=== PATIENT | male | born 1975 | race Caucasian/White ===

== ENCOUNTER 2017-04-22 13:09 | Observation (INO) | payer MEDICARE, OTHER ==
[2017-04-22] MEDS ORDERED: Piperacillin/Tazobact 3.375 gm 100 ML IV STA (14:27)
[2017-04-22] MEDS ORDERED: Sodium Chloride 0.9% 1,000 ML IV ONE ×2 (14:28→16:25)
--- NOTE | 2017-04-22 14:42 | C.PDOC ---
History Of Present Illness Cheng Jon, a 41 year old male, with a past medical history of mentally disabled schizophrenia, diabetes and bipolar disorder presents to the ED complaining of tenderness, pain and foul smelling discharge to the right perineum x5 days . The patient claims to have moderately well controlled blood sugars. Patient is drinking a bottle of coca cola on exam. Time Seen by Provider: 04/22/17 13:35 Chief Complaint (Nursing): Abnormal Skin Integrity History Per: Patient History/Exam Limitations: no limitations Onset/Duration Of Symptoms: Days (x5 days) Current Symptoms Are (Timing): Still Present Quality Of Symptoms: Painful, Draining Past Medical History Reviewed: Historical Data, Nursing Documentation, Vital Signs Vital Signs: Last Vital Signs Temp 98.5 F 04/22/17 14:50 Pulse 107 H 04/22/17 15:22 Resp 20 04/22/17 15:22 BP 130/80 04/22/17 15:22 Pulse Ox 94 L 04/22/17 15:22 - Medical History PMH: Bipolar Disorder, Diabetes, Schizophrenia (affective) Family History: States: Unknown Family Hx - Social History Hx Alcohol Use: Yes Hx Substance Use: No - Immunization History Hx Tetanus Toxoid Vaccination: No Hx Influenza Vaccination: No Hx Pneumococcal Vaccination: No Review Of Systems Except As Marked, All Systems Reviewed And Found Negative. Genitourinary: Positive for: Other (pain, tenderness and fould discharge to right perineum.) Physical Exam - Physical Exam Appears: Well, Non-toxic, No Acute Distress Skin: Normal Color, Warm, Dry Head: Atraumatic, Normacephalic, No Tenderness Eye(s): bilateral: Normal Inspection, PERRL, EOMI Ear(s): Bilateral: Normal Nose: Normal Oral Mucosa: Moist Tongue: Normal Appearing Lips: Normal Appearing Teeth: Normal Dentition Gingiva: Normal Appearing Throat: Normal Neck: Normal, Normal ROM, Supple Cardiovascular: Other (tachycardic.) Respiratory: No Wheezing Gastrointestinal/Abdominal: Normal Exam, Bowel Sounds, Soft, No Tenderness, No Guarding, No Rebound Back: Normal Inspection, No CVA Tenderness Male Genital: Other (open wound with foul smelling discharge and tracking in right perineal area.) Neurological/Psych: Oriented x3, Normal Speech, Normal Cognition Gait: Steady ED Course And Treatment - Laboratory Results Result Diagrams: 04/22/17 14:51 04/22/17 14:51 Lab Interpretation: Abnormal (elev glu, non-ketotic, lactate 2.4 H) O2 Sat by Pulse Oximetry: 96 (RA) Pulse Ox Interpretation: Normal Progress Note: CT eval and Surgical eval by Dr. Magallanes and Surg Jarvis. Low susp of Fornier's Gangrene. Agree with ABX regimen. Will follow Reevaluation Time: 16:27 Reassessment Condition: Improved - Physician Consult Information Outcome Of Conversation: 1620: d/w Dr. Erlinda Noel- medicine Beater Operator- ok to Med/ SurgCamron Magallanes for Surgery will follow Medical Decision Making Medical Decision Makin Initial Impression: 41 year old male presenting with pain, tenderness and foul smelling discharge to right side of perineoum Initial Plan: * VBG * CT Pelvis w/IV Contrast * Comp Metabolic Panel * Lact Acid * Lipase * CBC * Morphine 6mg IVP * Zosyn 100ml IV * NS 1000mls IV 1000mls/hr * Vancomycin 250ml IV * Rocephin 50ml IV * Blood Culture * Urinalysis * Reevaluation 1620: initially highly suspicous for Fornier's Gangrene- empiric abx and CT Pelvis ordered Initial CT did not get low enough below scrotum to eval perinium. Repeat CT satisfactory, no Fornier's noted. Poorly controlled DM and pt drinking Cola @ bedside- mentally handicapped/ disabled due to Schizophrenia/Bipolar with poor insight is a siginificant contributing factor. Continue ABX and Obs Disposition Doctor Will See Patient In The: Hospital Counseled Patient/Family Regarding: Studies Performed, Diagnosis - Disposition Disposition: HOSPITALIZED Disposition Time: 16:30 Condition: GOOD Forms: [employer]) - Clinical Impression Clinical Impression: Skin lesion, Right groin wound - Scribe Statement The provider has reviewed the documentation as recorded by the Paoibtara Louis All medical record entries made by the Dee Dee were at my direction and personally dictated by me. I have reviewed the chart and agree that the record accurately reflects my personal performance of the history, physical exam, medical decision making, and the department course for this patient. I have also personally directed, reviewed, and agree with the discharge instructions and disposition. Provider Attestation: .
[2017-04-22] MEDS ORDERED: Morphine 4 MG/ML VIAL ONE (14:44)
[2017-04-22] MEDS ORDERED: Sodium Chloride 0.9% 1,000 ML ONE (14:44)
[2017-04-22] MEDS ORDERED: Piperacillin/Tazobact 3.375 gm 100 ML IVPB ONE (14:45)
[2017-04-22] MEDS ORDERED: Iodixanol 320 mg/ml 150 ml Bottle IV ONE (14:49)
[2017-04-22] MEDS ORDERED: cefTRIAXone IV 1 gm in Dextros 50 ML IV STA (14:54)
[2017-04-22 14:55] LABS: BASO # 0.1 K/uL (0.0-0.2); BASO % 0.7 % (0.0-2.0); EOS % 0.3 % (0.0-4.0); HEMOGLOBIN 15.3 g/dL (12.0-18.0); LYMPH # 2.2 K/uL (1.0-4.3); LYMPH % 24.5 % (20.0-40.0); MEAN CELL VOLUME 86.2 fL (80.0-94.0); MEAN CORPUSCULAR HEMOGLOBIN 29.6 pg (27.0-31.0); MEAN CORPUSCULAR HGB CONC 34.4 g/dL (33.0-37.0); MEAN PLATELET VOLUME 9.5 fL (7.2-11.7); MONO # 0.4 K/uL (0.0-0.8); MONO % 4.5 % (0.0-10.0); NEUT # 6.2 K/uL (1.8-7.0); RBC 5.15 Mil/uL (4.40-5.90); RED CELL DISTRIBUTION WIDTH 13.3 % (11.5-14.5); WHITE BLOOD COUNT 8.9 K/uL (4.8-10.8)
[2017-04-22 14:57] LABS: VENOUS BLOOD GAS BASE EXCESS -4.2 mmol/L (0.0-2.0); VENOUS BLOOD GAS PCO2 38 mmHg (40-60); VENOUS BLOOD GAS PO2 44 mm/Hg (30-55); VENOUS BLOOD PH 7.35 (7.32-7.43)
[2017-04-22 15:01] LABS: ALBUMIN 3.6 g/dL (3.5-5.0)
[2017-04-22] MEDS ORDERED: cefTRIAXone IV 1 gm in Dextros 50 ML IVPB ONE (15:02)
[2017-04-22 15:04] LABS: GFR AFRICAN-AMERICAN > 60; GFR NON-AFRICAN AMERICAN > 60
[2017-04-22 15:05] LABS: ALB/GLOB RATIO 1.1 (1.0-2.1); ALT/SGPT 57 U/L (21-72); AST/SGOT 30 U/L (17-59); BLOOD UREA NITROGEN 10 mg/dL (9-20); CALCIUM 8.8 mg/dl (8.6-10.4); LIPASE 44 U/L (23-300)
[2017-04-22] MEDS ORDERED: Vancomycin 1 GM 1 GM/250 ML BAG IV STA (15:08)
[2017-04-22] MEDS ORDERED: Vancomycin 1 GM 1 GM/250 ML BAG IVPB ONE (15:33)
[2017-04-22 15:40] LABS: URINE BILIRUBIN NEGATIVE (NEGATIVE); URINE BLOOD NEGATIVE (NEGATIVE); URINE CLARITY Clear (Clear); URINE COLOR Yellow (YELLOW); URINE GLUCOSE (UA) 3+ mg/dL (Normal); URINE LEUKOCYTE ESTERASE NEG Leu/uL (Negative); URINE NITRATE NEGATIVE (NEGATIVE); URINE PROTEIN NEGATIVE (NEGATIVE); URINE UROBILINOGEN NORMAL mg/dL (0.2-1.0)
[2017-04-22] MEDS ORDERED: (Novolin R) Insulin Human Regular 100 units/ml vial IV STA (15:42)
--- NOTE | 2017-04-22 15:42 | CT ---
CT pelvis History: Perineal pain. Comparison: None available. Technique: Multiple contiguous axial images were performed through pelvis without the use of intravenous contrast. Findings: Visualized portions of the penis appear grossly preserved. Only a portion of the scrotum is visualized. Visualized portion appears grossly preserved. Prostate appears preserved. Urinary bladder appears distended but otherwise preserved. Under distended distal sigmoid colon and rectum. Underdistended visualized descending colon. Visualized appendix is preserved. Visualized aorta and iliac vessels appear preserved. No significant para-aortic or inguinal lymphadenopathy. Few shotty bilateral inguinal lymph nodes. Small bone island within the left iliac bone. Impression: Unremarkable evaluation of the visualized pelvis; however, a portion of the perineum and scrotum was not imaged on this study. Repeat study through the scrotum and perineum region may be helpful for further evaluation if clinically indicated. Additional findings as above. These findings were discussed Dr. Medina at 3:39 p.m. on 04/22/2017.
[2017-04-22] MEDS ORDERED: (Novolin R) Insulin Human Regular 100 units/ml vial ONE (15:47)
[2017-04-22 15:48] VITALS: RESP 20
--- NOTE | 2017-04-22 16:19 | CP.PCM.CON ---
History of Present Illness - History of Present Illness History of Present Illness: GENERAL SURGERY CONSULT NOTE FOR DR. DIXON 41yo M with PMHx of DM, bipolar, schizophrenia presents to the ED with pain in his right perineal area. About 5 days ago, he noticed a boil in the area. He put an unknown lotion on the area and washed it multiple times. On , his partner tried to pop it and some pus came out. After that, the pain worsened prompting the patient to come to the ED. He is having difficulty laying down and sitting down due to the pain. He denies fever or chills. He is having normal bowel movements and urinating normally. Last BM was today. In the ED, patient received IV fluids, Rocephin, Vancomycin, Insulin and morphine. PMHx: DM, HTN, bipolar, schizophrenia Surgeries: none Allergies: penicillins Social history: occasional etoh, smokes 1 PPD, occasional marijuana in the past Review of Systems - Review of Systems All systems: reviewed and no additional remarkable complaints except (as per hpi ) Past Patient History - Past Social History Smoking Status: Heavy Smoker > 10 Cigarettes Daily - ENDOCRINE/METABOLIC Hx Diabetes Mellitus Type 2: Yes - PSYCHIATRIC Hx Bipolar Disorder: Yes Hx Schizophrenia: Yes (affective) Hx Substance Use: No - SURGICAL HISTORY Hx Surgeries: No - ANESTHESIA Hx Anesthesia: No Hx Anesthesia Reactions: No Meds Allergies/Adverse Reactions: Allergies Allergy/AdvReac Type Severity Reaction Status Date / Time Penicillins Allergy Verified 04/22/17 14:57 - Medications Medications: Current Medications Vancomycin HCl (Vancomycin 1gm In Normal Saline Addvantage) 1 gm in 250 mls @ 166.667 mls/hr IV STAT STA Stop: 04/22/17 16:37 Last Admin: 04/22/17 15:40 Dose: 166.667 mls/hr Physical Exam - Constitutional Appears: Non-toxic, No Acute Distress - Head Exam Head Exam: ATRAUMATIC, NORMAL INSPECTION - Respiratory Exam Respiratory Exam: NORMAL BREATHING PATTERN. absent: Respiratory Distress - Cardiovascular Exam Cardiovascular Exam: Tachycardia, +S1, +S2 - GI/Abdominal Exam GI & Abdominal Exam: Soft. absent: Tenderness - Exam Additional comments: Right perineal area: 2x1 cm opening with surrounding erythema, no discharge able to be expressed, no induration, no fluctuance, area malodorous. Opening was probed with a q-tip and it did not track in any direction - Neurological Exam Neurological exam: Alert, CN II-XII Intact - Psychiatric Exam Psychiatric exam: Normal Affect, Normal Mood - Skin Skin Exam: Normal Color, Warm Results - Vital Signs Recent Vital Signs: Last Vital Signs Temp 98.5 F 04/22/17 14:50 Pulse 107 H 04/22/17 15:22 Resp 20 04/22/17 15:22 BP 130/80 04/22/17 15:22 Pulse Ox 94 L 04/22/17 15:22 - Labs Result Diagrams: 04/23/17 07:15 04/23/17 07:15 Labs: Laboratory Results - last 24 hr 04/22/17 04/22/17 04/22/17 14:42 14:51 14:51 WBC 8.9 RBC 5.15 Hgb 15.3 Hct 44.4 MCV 86.2 MCH 29.6 MCHC 34.4 RDW 13.3 Plt Count 226 MPV 9.5 Neut % (Auto) 70.0 Lymph % (Auto) 24.5 [place] % (Auto) 4.5 Eos % (Auto) 0.3 Baso % (Auto) 0.7 Neut # 6.2 Lymph # 2.2 [place] # 0.4 Eos # 0.0 Baso # 0.1 pO2 44 VBG pH 7.35 VBG pCO2 38 L VBG HCO3 21.1 VBG Total CO2 22.2 VBG O2 Sat (Calc) 88.7 H VBG Base Excess -4.2 L VBG Potassium 3.7 Sodium 132.0 132 Chloride 101.0 95 L Glucose 498 H* Lactate 2.4 H Crit Value Called To Nadeem reyes Crit Value Called By Cullen Crit Value Read Back Y Blood Gas Notified Time 1452 Potassium 3.9 Carbon Dioxide 22 Anion Gap 19 BUN 10 Creatinine 0.7 L Est GFR ( Amer) > 60 Est GFR (Non-Af Amer) > 60 Random Glucose 526 H* D Calcium 8.8 Total Bilirubin 0.7 AST 30 ALT 57 Alkaline Phosphatase 107 Total Protein 6.9 Albumin 3.6 Globulin 3.3 Albumin/Globulin Ratio 1.1 Lipase 44 Venous Blood Potassium 3.7 Urine Color Urine Clarity Urine pH Ur Specific [place] Urine Protein Urine Glucose (UA) Urine Ketones Urine Blood Urine Nitrate Urine Bilirubin Urine Urobilinogen Ur Leukocyte Esterase Urine WBC (Auto) Urine RBC (Auto) 04/22/17 15:33 WBC RBC Hgb Hct MCV MCH MCHC RDW Plt Count MPV Neut % (Auto) Lymph % (Auto) [place] % (Auto) Eos % (Auto) Baso % (Auto) Neut # Lymph # [place] # Eos # Baso # pO2 VBG pH VBG pCO2 VBG HCO3 VBG Total CO2 VBG O2 Sat (Calc) VBG Base Excess VBG Potassium Sodium Chloride Glucose Lactate Crit Value Called To Crit Value Called By Crit Value Read Back Blood Gas Notified Time Potassium Carbon Dioxide Anion Gap BUN Creatinine Est GFR ( Amer) Est GFR (Non-Af Amer) Random Glucose Calcium Total Bilirubin AST ALT Alkaline Phosphatase Total Protein Albumin Globulin Albumin/Globulin Ratio Lipase Venous Blood Potassium Urine Color Yellow Urine Clarity Clear Urine pH 6.0 Ur Specific [place] 1.040 H Urine Protein Negative Urine Glucose (UA) 3+ H Urine Ketones Trace Urine Blood Negative Urine Nitrate Negative Urine Bilirubin Negative Urine Urobilinogen Normal Ur Leukocyte Esterase Neg Urine WBC (Auto) < 1 Urine RBC (Auto) < 1 Assessment & Plan - Assessment and Plan (Free Text) Assessment: 41yo M with PMHx of DM, bipolar, schizophrenia presents with pain in his right perineal area and was admitted for abscess with cellulitis, rule out Delbert's gangrene - Afebrile, tachycardic - BP stable - No leukocytosis - Lactic acid mildly elevated - Glucose >500 - IV fluids - Morphine PRN pain - Zofran PRN - IV Abx - FU wound cx which was taken in ED - Discussed plan with Dr. Elpidio Vail PGY-3
[2017-04-22] MEDS ORDERED: Morphine 4 MG/ML VIAL IVP PRN (16:27)
[2017-04-22] MEDS ORDERED: Sodium Chloride 0.9% 250 ML IV ONE (16:46)
[2017-04-22] MEDS: Enoxaparin 40 mg Syringe SC SCH (21:50)
[2017-04-22] MEDS: (Novolog) Insulin Aspart, Recombinant 100 u/ml 10 ml vial SC SCH (22:21)
--- NOTE | 2017-04-22 22:44 | CP.PCM.HP ---
Present on Admission - Present on Admission Any Indicators Present on Admission: No Past Patient History - Past Medical History & Family History Past Medical History?: Yes - Past Social History Smoking Status: Heavy Smoker > 10 Cigarettes Daily - CARDIAC Hx Cardiac Disorders: No - PULMONARY Hx Respiratory Disorders: No - NEUROLOGICAL Hx Neurological Disorder: No - HEENT Hx HEENT Problems: No - RENAL Hx Chronic Kidney Disease: No - ENDOCRINE/METABOLIC Hx Endocrine Disorders: Yes Hx Diabetes Mellitus Type 2: Yes - HEMATOLOGICAL/ONCOLOGICAL Hx Blood Disorders: No - INTEGUMENTARY Hx Dermatological Problems: Yes Other/Comment: right groin infection - MUSCULOSKELETAL/RHEUMATOLOGICAL Hx Musculoskeletal Disorders: No Hx Falls: No - GASTROINTESTINAL Hx Gastrointestinal Disorders: No - GENITOURINARY/GYNECOLOGICAL Hx Genitourinary Disorders: No - PSYCHIATRIC Hx Psychophysiologic Disorder: Yes Hx Bipolar Disorder: Yes Hx Schizophrenia: Yes (affective) Hx Substance Use: No - SURGICAL HISTORY Hx Surgeries: No - ANESTHESIA Hx Anesthesia: No Hx Anesthesia Reactions: No Meds Allergies/Adverse Reactions: Allergies Allergy/AdvReac Type Severity Reaction Status Date / Time Penicillins Allergy Verified 04/22/17 14:57 Physical Exam - Constitutional Appears: Well - Head Exam Head Exam: ATRAUMATIC, NORMAL INSPECTION, NORMOCEPHALIC - Eye Exam Eye Exam: EOMI, Normal appearance, PERRL Pupil Exam: NORMAL ACCOMODATION, PERRL - ENT Exam ENT Exam: Mucous Membranes Moist, Normal Exam - Neck Exam Neck exam: Positive for: Normal Inspection - Respiratory Exam Respiratory Exam: Decreased Breath Sounds - Cardiovascular Exam Cardiovascular Exam: REGULAR RHYTHM, +S1, +S2 - GI/Abdominal Exam GI & Abdominal Exam: Diminished Bowel Sounds, Soft - Rectal Exam Rectal Exam: Deferred Results - Vital Signs Recent Vital Signs: Last Vital Signs Temp 97.7 F 04/22/17 17:40 Pulse 84 04/22/17 17:40 Resp 20 04/22/17 17:40 BP 116/73 04/22/17 17:40 Pulse Ox 97 04/22/17 17:40 - Labs Result Diagrams: 04/22/17 14:51 04/22/17 14:51 Labs: Laboratory Results - last 24 hr 04/22/17 04/22/17 17:26 21:26 POC Glucose (mg/dL) 170 H 344 H
[2017-04-23] MEDS: Vancomycin 1 gm/NS 200 ml 1 GM/200 ML BAG IVPB SCH ×2 (03:25→14:35)
[2017-04-23 07:41] LABS: BASO % 0.6 % (0.0-2.0); EOS # 0.1 K/uL (0.0-0.7); EOS % 0.9 % (0.0-4.0); HEMOGLOBIN 14.9 g/dL (12.0-18.0); LYMPH # 2.4 K/uL (1.0-4.3); LYMPH % 29.7 % (20.0-40.0); MEAN CELL VOLUME 84.6 fL (80.0-94.0); MEAN CORPUSCULAR HEMOGLOBIN 29.6 pg (27.0-31.0); MEAN PLATELET VOLUME 9.3 fL (7.2-11.7); MONO # 0.5 K/uL (0.0-0.8); MONO % 5.9 % (0.0-10.0); NEUT # 5.1 K/uL (1.8-7.0); NEUT % 62.9 % (50.0-75.0); RBC 5.05 Mil/uL (4.40-5.90); RED CELL DISTRIBUTION WIDTH 13.4 % (11.5-14.5); WHITE BLOOD COUNT 8.1 K/uL (4.8-10.8)
[2017-04-23 07:53] LABS: ALBUMIN 3.1 g/dL (3.5-5.0)
[2017-04-23 07:56] LABS: ALT/SGPT 64 U/L (21-72); AST/SGOT 45 U/L (17-59); BLOOD UREA NITROGEN 9 mg/dL (9-20); GFR AFRICAN-AMERICAN > 60; GFR NON-AFRICAN AMERICAN > 60
[2017-04-23 07:57] LABS: CALCIUM 8.3 mg/dl (8.6-10.4)
[2017-04-23] MEDS: (Novolog) Insulin Aspart, Recombinant 100 u/ml 10 ml vial SC SCH ×4 (08:14→21:20)
--- NOTE | 2017-04-23 09:27 | CP.PCM.PN ---
Subjective - Date & Time of Evaluation Date of Evaluation: 04/23/17 Time of Evaluation: 07:00 - Subjective Subjective: GENERAL SURGERY PROGRESS NOTE FOR DR. DIXON Patient seen and examined at bedside. He reports that the pain is improved compared to yesterday. He is now able to sit and lay down to sleep which before were too painful for him. He denies fever or chills. Objective - Vital Signs/Intake and Output Vital Signs (last 24 hours): Temp Pulse Resp BP Pulse Ox 98.4 F 84 20 104/69 96 04/23/17 08:35 04/23/17 08:35 04/23/17 08:35 04/23/17 08:35 04/23/17 08:35 Intake and Output: 04/23/17 04/23/17 06:59 18:59 Intake Total 910 Balance 910 - Medications Medications: Current Medications Buspirone HCl (Buspar) 10 mg PO DAILY [facility] Enoxaparin Sodium (Lovenox) 40 mg SC DAILY [facility] Last Admin: 04/22/17 21:50 Dose: 40 mg Ceftriaxone Sodium 1 gm/ (Sodium Chloride) 100 mls @ 100 mls/hr IVPB DAILY [facility] Vancomycin/Sodium Chloride (Vancocin) 1 gm in 200 mls @ 133.333 mls/hr IVPB Q12H [facility] Last Admin: 04/23/17 03:25 Dose: 133.333 mls/hr Insulin Aspart (Novolog) 0 unit SC ACHS [facility] PRN Reason: Protocol Last Admin: 04/23/17 08:14 Dose: 4 unit Metformin HCl (Glucophage) [facility] [place] [facility] Last Admin: 04/22/17 21:50 Dose: 1,000 mg Morphine Sulfate (Morphine) 4 mg IVP Q4 PRN PRN Reason: Pain, moderate (4-7) Last Admin: 04/23/17 08:18 Dose: 4 mg Ondansetron HCl (Zofran Inj) 4 mg IVP Q4 PRN PRN Reason: Nausea/Vomiting Pantoprazole Sodium (Protonix Ec Tab) 40 mg PO DAILY [facility] Quetiapine Fumarate (Seroquel) 25 mg PO BID [facility] Last Admin: 04/22/17 21:50 Dose: 25 mg - Labs Labs: 04/23/17 07:15 04/23/17 07:15 - Constitutional Appears: Non-toxic, No Acute Distress - Head Exam Head Exam: ATRAUMATIC, NORMAL INSPECTION - Respiratory Exam Respiratory Exam: NORMAL BREATHING PATTERN. absent: Respiratory Distress - Cardiovascular Exam Cardiovascular Exam: +S1, +S2. absent: Tachycardia - Neurological Exam Neurological Exam: Alert, Awake, Oriented x3 - Psychiatric Exam Psychiatric exam: Normal Affect, Normal Mood - Skin Skin Exam: Normal Color, Warm Additional comments: Right perineal area: 2x1 cm opening and another 2x1cm opening right next to it with mild surrounding erythema, no discharge able to be expressed, no induration , no fluctuance, area malodorous. No crepitus felt Assessment and Plan - Assessment and Plan (Free Text) Assessment: 41yo M with PMHx of DM, bipolar, schizophrenia presents with pain in his right perineal area and was admitted for abscess with cellulitis, rule out Delbert's gangrene - Afebrile, tachycardic resolved - No leukocytosis - Glucose improved compared to yesterday but still high - IV fluids - Morphine PRN pain - Zofran PRN - IV Abx - Wound gram stain = few gram + cocci, wound culture to follow - Will continue to monitor with serial exams - Discussed plan with Dr. Elpidio Vail PGY-3
[2017-04-23] MEDS: Enoxaparin 40 mg Syringe SC SCH (09:30)
[2017-04-23] MEDS ORDERED: Pantoprazole 40 mg EC Tab PO SCH (10:00)
[2017-04-23] MEDS ORDERED: QUEtiapine 200 mg XR Tab PO SCH (10:00)
--- NOTE | 2017-04-23 15:52 | CP.PCM.CON ---
History of Present Illness - History of Present Illness History of Present Illness: 41yo M with PMHx of DM, bipolar, schizophrenia presents to the ED with pain in his right perineal area. About 5 days ago, he noticed a boil in the area. He put an unknown lotion on the area and washed it multiple times. On , his partner tried to pop it and some pus came out. After that, the pain worsened prompting the patient to come to the ED. He is having difficulty laying down and sitting down due to the pain. He denies fever or chills. He is having normal bowel movements and urinating normally. Last BM was today. In the ED, patient received IV fluids, Rocephin, Vancomycin, Insulin and morphine. PMHx: DM, HTN, bipolar, schizophrenia Surgeries: none Allergies: penicillins Social history: occasional etoh, smokes 1 PPD, occasional marijuana in the past Review of Systems - Review of Systems All systems: reviewed and no additional remarkable complaints except (as per hpi ) Past Patient History - Past Social History Smoking Status: Heavy Smoker > 10 Cigarettes Daily - ENDOCRINE/METABOLIC Hx Diabetes Mellitus Type 2: Yes - PSYCHIATRIC Hx Bipolar Disorder: Yes Hx Schizophrenia: Yes (affective) Hx Substance Use: No - SURGICAL HISTORY Hx Surgeries: No - ANESTHESIA Hx Anesthesia: No Hx Anesthesia Reactions: No Meds Allergies/Adverse Reactions: Allergies Allergy/AdvReac Type Severity Reaction Status Date / Time Penicillins Allergy Verified 04/22/17 14:57 - Medications Medications: Current Medications Vancomycin HCl (Vancomycin 1gm In Normal Saline Addvantage) 1 gm in 250 mls @ 166.667 mls/hr IV STAT STA Stop: 04/22/17 16:37 Last Admin: 04/22/17 15:40 Dose: 166.667 mls/hr Review of Systems - Review of Systems All systems: reviewed and no additional remarkable complaints except - Constitutional Constitutional: As Per HPI - EENT Eyes: absent: As Per HPI, Blind Spots, Blurred Vision, Change in Vision, Decreased Night Vision, Diplopia, Discharge, Dry Eye, Exophthalmos, Floaters, Irritation, Itchy Eyes, Loss of Peripheral Vision, Pain, Photophobia, Requires Corrective Lenses, Sees Flashes, Spots in Vision, Tunnel Vision, Other Visual Disturbances, Loss of Vision, Other Ears: absent: As Per HPI, Decreased Hearing, Ear Discharge, Ear Pain, Tinnitus, Abnormal Hearing, Disequilibrium, Dizziness, Other Nose/Mouth/Throat: absent: As Per HPI, Epistaxis, Nasal Congestion, Nasal Discharge, Nasal Obstruction, Nasal Trauma, Nose Pain, Post Nasal Drip, Sinus Pain, Sinus Pressure, Bleeding Gums, Change in Voice, Dental Pain, Dry Mouth, Dysphagia, Halitosis, Hoarsness, Lip Swelling, Mouth Lesions, Mouth Pain, Odynophagia, Sore Throat, Throat Swelling, Tongue Swelling, Facial Pain, Neck Pain, Neck Mass, Other - Cardiovascular Cardiovascular: absent: As Per HPI, Acrocyanosis, Chest Pain, Chest Pain at Rest , Chest Pain with Activity, Claudication, Diaphoresis, Dyspnea, Dyspnea on Exertion, Edema, Irregular Heart Rhythm, Pain Radiating to Arm/Neck/Jaw, Leg Edema, Leg Ulcers, Lightheadedness, Orthopnea, Palpitations, Paroxysmal Nocturnal Dyspnea, Pedal Edema, Radiating Pain, Rapid Heart Rate, Slow Heart Rate, Syncope, Other - Respiratory Respiratory: absent: As Per HPI, Cough, Dyspnea, Hemoptysis, Dyspnea on Exertion , Wheezing, Snoring, Stridor, Pain on Inspiration, Chest Congestion, Excessive Mucous Production, Change in Mucous Color, Pain with Coughing, Other - Gastrointestinal Gastrointestinal: absent: As Per HPI, Abdominal Pain, Belching, Bloating, Change in Bowel Habits, Change in Stool Character, Coffee Ground Emesis, Constipation, Cramping, Diarrhea, Dyspepsia, Dysphagia, Early Satiety, Excessive Flatus, Fecal Incontinence, Heartburn, Hematemesis, Hematochezia, Loose Stools, Melena, Nausea, Odynophagia, Temesmus, Vomiting, Other - Genitourinary Genitourinary: absent: As Per HPI, Change in Urinary Stream, Difficulty Urinating, Dysuria, Flank Pain, Hematuria, Pyuria, Nocturia, Urinary Incontinence, Urinary Frequency, Urinary Hesitance, Urinary Urgency, Voiding Freq/Small Amts, Freq UTI, Hx Renal/Bladder Calculi, Hx /Renal Surgery, Bladder Distension, Other - Musculoskeletal Musculoskeletal: absent: As Per HPI, Abnormal Gait, Arthralgias, Atrophy, Back Pain, Deformity, Joint Swelling, Limited Range of Motion, Loss of Height, Muscle Cramps, Muscle Weakness, Myalgias, Neck Pain, Numbness, Radiating Pain into Limb, Stiffness, Tingling, Other - Integumentary Integumentary: As Per HPI, Skin Pain, Wounds - Neurological Neurological: absent: As Per HPI, Abnormal Gait, Abnormal Hearing, Abnormal Movements, Abnormal Speech, Behavioral Changes, Burning Sensations, Confusion, Convulsions, Disequilibrium, Dizziness, Numbness, Focal Weakness, Frequent Falls , Headaches, Lack of Coordination, Loss of Vision, Memory Loss, Paresthesias, Radicular Pain, Restless Legs, Sensory Deficit, Syncope, Tingling, Tremor, Vertigo, Weakness, Other Visual Disturbances, Other - Psychiatric Psychiatric: absent: As Per HPI, Abnormal Sleep Pattern, Anhedonia, Anxiety, Auditory Hallucinations, Behavioral Changes, Change in Appetite, Change in Libido, Confusion, Depression, Difficulty Concentrating, Hallucinations, Homicidal Ideation, Hopelessness, Irritability, Memory Loss, Mood Swings, Panic Attacks, Paranoia, Suicidal Ideation, Visual Hallucinations, Tactile Hallucinations, Other - Endocrine Endocrine: absent: As Per HPI, Change in Body Appearance, Change in Libido, Cold Intolorance, Deepening of Voice, Excessive Sweating, Fatigue, Flushing, Heat Intolorance, Increase in Ring/Shoe/Hat Size, Palpitations, Polydipsia, Polyphagia, Polyuria, Other - Hematologic/Lymphatic Hematologic: absent: As Per HPI, Easy Bleeding, Easy Bruising, Lymphadenopathy, Other Past Patient History - Past Medical History & Family History Past Medical History?: Yes - Past Social History Smoking Status: Heavy Smoker > 10 Cigarettes Daily - CARDIAC Hx Cardiac Disorders: No - PULMONARY Hx Respiratory Disorders: No - NEUROLOGICAL Hx Neurological Disorder: No - HEENT Hx HEENT Problems: No - RENAL Hx Chronic Kidney Disease: No - ENDOCRINE/METABOLIC Hx Diabetes Mellitus Type 2: Yes - HEMATOLOGICAL/ONCOLOGICAL Hx Blood Disorders: No - INTEGUMENTARY Hx Dermatological Problems: Yes Other/Comment: right groin infection - MUSCULOSKELETAL/RHEUMATOLOGICAL Hx Musculoskeletal Disorders: No Hx Falls: No - GASTROINTESTINAL Hx Gastrointestinal Disorders: No - GENITOURINARY/GYNECOLOGICAL Hx Genitourinary Disorders: No - PSYCHIATRIC Hx Bipolar Disorder: Yes Hx Schizophrenia: Yes (affective) Hx Substance Use: No - SURGICAL HISTORY Hx Surgeries: No - ANESTHESIA Hx Anesthesia: No Hx Anesthesia Reactions: No Meds Allergies/Adverse Reactions: Allergies Allergy/AdvReac Type Severity Reaction Status Date / Time Penicillins Allergy Verified 04/22/17 14:57 - Medications Medications: Current Medications Buspirone HCl (Buspar) 10 mg PO DAILY [facility] Last Admin: 04/23/17 09:57 Dose: 10 mg Enoxaparin Sodium (Lovenox) 40 mg SC DAILY [facility] Last Admin: 04/23/17 09:30 Dose: 40 mg Ceftriaxone Sodium 1 gm/ (Sodium Chloride) 100 mls @ 100 mls/hr IVPB DAILY [facility] Last Admin: 04/23/17 09:33 Dose: 100 mls/hr Vancomycin/Sodium Chloride (Vancocin) 1 gm in 200 mls @ 133.333 mls/hr IVPB Q12H [facility] Last Admin: 04/23/17 03:25 Dose: 133.333 mls/hr Insulin Aspart (Novolog) 0 unit SC ACHS [facility] PRN Reason: Protocol Last Admin: 04/23/17 12:06 Dose: 6 unit [facility] Last Admin: 04/23/17 09:30 Dose: 1,000 mg Morphine Sulfate (Morphine) 4 mg IVP Q4 PRN PRN Reason: Pain, moderate (4-7) Last Admin: 04/23/17 08:18 Dose: 4 mg Ondansetron HCl (Zofran Inj) 4 mg IVP Q4 PRN PRN Reason: Nausea/Vomiting Pantoprazole Sodium (Protonix Ec Tab) 40 mg PO DAILY [facility] Last Admin: 04/23/17 09:30 Dose: 40 mg Quetiapine Fumarate (Seroquel) 25 mg PO BID [facility] Last Admin: 04/23/17 09:30 Dose: 25 mg Physical Exam - Constitutional Appears: Non-toxic, Chronically Ill - Head Exam Head Exam: NORMOCEPHALIC - Eye Exam Eye Exam: PERRL. absent: Scleral icterus - ENT Exam ENT Exam: Mucous Membranes Dry, Normal External Ear Exam - Neck Exam Neck exam: Negative for: Lymphadenopathy - Respiratory Exam Respiratory Exam: Decreased Breath Sounds - Cardiovascular Exam Cardiovascular Exam: REGULAR RHYTHM - GI/Abdominal Exam GI & Abdominal Exam: Diminished Bowel Sounds, Soft - Rectal Exam Rectal Exam: Deferred Additional comments: draining wounds right perineal area - Exam Exam: NORMAL INSPECTION - Extremities Exam Extremities exam: Negative for: calf tenderness, pedal edema - Back Exam Back exam: absent: CVA tenderness (L), CVA tenderness (R) - Neurological Exam Neurological exam: Alert, CN II-XII Intact, Oriented x3, Reflexes Normal - Psychiatric Exam Psychiatric exam: Normal Mood - Skin Skin Exam: Dry Results - Vital Signs Recent Vital Signs: Last Vital Signs Temp 98.4 F 04/23/17 08:35 Pulse 84 04/23/17 08:35 Resp 20 04/23/17 08:35 BP 104/69 04/23/17 08:35 Pulse Ox 96 04/23/17 08:35 - Labs Result Diagrams: 04/23/17 07:15 04/23/17 07:15 Labs: Laboratory Results - last 24 hr 04/22/17 04/22/17 04/23/17 17:26 21:26 01:46 WBC RBC Hgb Hct MCV MCH MCHC RDW Plt Count MPV Neut % (Auto) Lymph % (Auto) [place] % (Auto) Eos % (Auto) Baso % (Auto) Neut # Lymph # [place] # Eos # Baso # Sodium Potassium Chloride Carbon Dioxide Anion Gap BUN Creatinine Est GFR ( Amer) Est GFR (Non-Af Amer) POC Glucose (mg/dL) 170 H 344 H 302 H Random Glucose Calcium Total Bilirubin AST ALT Alkaline Phosphatase Total Protein Albumin Globulin Albumin/Globulin Ratio 04/23/17 04/23/17 04/23/17 07:15 07:15 07:28 WBC 8.1 RBC 5.05 Hgb 14.9 Hct 42.7 MCV 84.6 MCH 29.6 MCHC 35.0 RDW 13.4 Plt Count 226 MPV 9.3 Neut % (Auto) 62.9 Lymph % (Auto) 29.7 [place] % (Auto) 5.9 Eos % (Auto) 0.9 Baso % (Auto) 0.6 Neut # 5.1 Lymph # 2.4 [place] # 0.5 Eos # 0.1 Baso # 0.0 Sodium 138 Potassium 4.0 Chloride 102 Carbon Dioxide 22 Anion Gap 17 BUN 9 Creatinine 0.6 L Est GFR ( Amer) > 60 Est GFR (Non-Af Amer) > 60 POC Glucose (mg/dL) 249 H Random Glucose 268 H Calcium 8.3 L Total Bilirubin 0.6 AST 45 ALT 64 Alkaline Phosphatase 89 Total Protein 6.1 L Albumin 3.1 L Globulin 3.0 Albumin/Globulin Ratio 1.0 04/23/17 11:27 WBC RBC Hgb Hct MCV MCH MCHC RDW Plt Count MPV Neut % (Auto) Lymph % (Auto) [place] % (Auto) Eos % (Auto) Baso % (Auto) Neut # Lymph # [place] # Eos # Baso # Sodium Potassium Chloride Carbon Dioxide Anion Gap BUN Creatinine Est GFR ( Amer) Est GFR (Non-Af Amer) POC Glucose (mg/dL) 284 H Random Glucose Calcium Total Bilirubin AST ALT Alkaline Phosphatase Total Protein Albumin Globulin Albumin/Globulin Ratio Assessment & Plan (1) Right groin wound Status: Acute (2) Skin lesion Status: Acute (3) Dermatitis Status: Acute (4) Diabetic complication Status: Acute (5) Scrotal rash Status: Acute - Assessment and Plan (Free Text) Assessment: cont rx as sepsis diabetic control GI and surgical follow up IV antibiotics await cultures
[2017-04-23 16:54] VITALS: O2SAT 98
--- NOTE | 2017-04-23 21:59 | CP.PCM.PN ---
Subjective - Date & Time of Evaluation Date of Evaluation: 04/23/17 Time of Evaluation: 09:50 - Subjective Subjective: clinically same Objective - Vital Signs/Intake and Output Vital Signs (last 24 hours): Temp Pulse Resp BP Pulse Ox 97.6 F 82 20 112/76 98 04/23/17 16:52 04/23/17 16:52 04/23/17 16:52 04/23/17 16:52 04/23/17 16:52 Intake and Output: 04/23/17 04/24/17 18:59 06:59 Intake Total 660 Balance 660 - Medications Medications: Current Medications Buspirone HCl (Buspar) 10 mg PO DAILY [facility] Last Admin: 04/23/17 09:57 Dose: 10 mg Enoxaparin Sodium (Lovenox) 40 mg SC DAILY [facility] Last Admin: 04/23/17 09:30 Dose: 40 mg Ceftriaxone Sodium 1 gm/ (Sodium Chloride) 100 mls @ 100 mls/hr IVPB DAILY [facility] Last Admin: 04/23/17 09:33 Dose: 100 mls/hr Vancomycin/Sodium Chloride (Vancocin) 1 gm in 200 mls @ 133.333 mls/hr IVPB Q12H [facility] Last Admin: 04/23/17 14:35 Dose: 133.333 mls/hr Insulin Aspart (Novolog) 0 unit SC ACHS [facility] PRN Reason: Protocol Last Admin: 04/23/17 21:20 Dose: 2 unit Metformin HCl (Glucophage) 1,000 mg PO BID[facility] Last Admin: 04/23/17 17:12 Dose: 1,000 mg Morphine Sulfate (Morphine) 4 mg IVP Q4 PRN PRN Reason: Pain, moderate (4-7) Last Admin: 04/23/17 08:18 Dose: 4 mg Ondansetron HCl (Zofran Inj) 4 mg IVP Q4 PRN PRN Reason: Nausea/Vomiting Pantoprazole Sodium (Protonix Ec Tab) 40 mg PO DAILY [facility] Last Admin: 04/23/17 09:30 Dose: 40 mg Quetiapine Fumarate (Seroquel) 25 mg PO BID [facility] Last Admin: 04/23/17 19:13 Dose: 25 mg - Labs Labs: 04/23/17 07:15 04/23/17 07:15 - Constitutional Appears: Well - Head Exam Head Exam: ATRAUMATIC, NORMAL INSPECTION, NORMOCEPHALIC - Eye Exam Eye Exam: EOMI, Normal appearance, PERRL - ENT Exam ENT Exam: Mucous Membranes Moist, Normal Exam - Neck Exam Neck Exam: Full ROM, Normal Inspection. absent: Lymphadenopathy - Respiratory Exam Respiratory Exam: Decreased Breath Sounds - Cardiovascular Exam Cardiovascular Exam: REGULAR RHYTHM, +S1, +S2. absent: Murmur - GI/Abdominal Exam GI & Abdominal Exam: Soft, Diminished Bowel Sounds - Rectal Exam Rectal Exam: Deferred Assessment and Plan (1) Right groin wound Status: Acute (2) Skin lesion Status: Acute (3) Back pain Status: Acute (4) Dermatitis Status: Acute (5) Diabetic complication Status: Acute (6) Hyperglycemia Status: Acute (7) Neck pain Status: Acute (8) Scrotal rash Status: Acute (9) Tachycardia Status: Acute
[2017-04-24] MEDS: Vancomycin 1 gm/NS 200 ml 1 GM/200 ML BAG IVPB SCH (04:11)
[2017-04-24] MEDS: (Novolog) Insulin Aspart, Recombinant 100 u/ml 10 ml vial SC SCH (07:59)
[2017-04-24 08:16] VITALS: BP 116/71; PULSE 64; TEMP 98.3
--- NOTE | 2017-04-24 08:44 | CP.PCM.PN ---
Subjective - Date & Time of Evaluation Date of Evaluation: 04/24/17 Time of Evaluation: 07:20 - Subjective Subjective: General Surgery Note Patient was seen and examined at bedside in no acute distress. Patient was resting comfortably in bed. Patient reports that he is doing well and denies pain, fever, chills, sob and palpitations. Patient is able to sit and lay on his bed comfortably. Patient had no other complaints. Objective - Vital Signs/Intake and Output Vital Signs (last 24 hours): Temp Pulse Resp BP Pulse Ox 98.3 F 64 20 116/71 98 04/24/17 08:15 04/24/17 08:15 04/24/17 08:15 04/24/17 08:15 04/24/17 08:15 Intake and Output: 04/24/17 04/24/17 06:59 18:59 Intake Total 1160 Balance 1160 - Labs Labs: 04/23/17 07:15 04/23/17 07:15 - Constitutional Appears: Well, No Acute Distress - Head Exam Head Exam: ATRAUMATIC, NORMAL INSPECTION - Eye Exam Eye Exam: EOMI, Normal appearance - Respiratory Exam Respiratory Exam: Clear to Ausculation Bilateral, NORMAL BREATHING PATTERN - Cardiovascular Exam Cardiovascular Exam: REGULAR RHYTHM, +S1, +S2 - GI/Abdominal Exam GI & Abdominal Exam: Soft, Normal Bowel Sounds - Neurological Exam Neurological Exam: Alert, Awake, Oriented x3 - Psychiatric Exam Psychiatric exam: Normal Affect, Normal Mood - Skin Skin Exam: Dry, Normal Color, Warm Additional comments: Right perineal area: 2x1 cm opening and another 2x1cm opening right next to it with mild surrounding erythema, without discharge, no induration but the area is malodorous. Assessment and Plan (1) Perianal abscess Assessment & Plan: 41yo M with PMHx of DM, bipolar, schizophrenia presents with pain in his right perineal area and was admitted for abscess with cellulitis, rule out Delbert's gangrene - No surgical intervention at this time.follow-up outpatient - Afebrile, tachycardic resolved - No elevated WBC count as per yesterday's labs - IV fluids - Morphine PRN pain - Zofran PRN - IV Abx - Wound gram stain = few gram + cocci, Pending wound culture results - Will continue to monitor with serial exams - Discussed plan with Dr. Magallanes. As per nursing note, patient signed out AMA after surgical rounds stating that he could no longer wait to see his primary care doctor Status: Acute
== END 2017-04-24 08:10 | disposition left against medical advice (07) ==
LOC: C.ER 13:09 → C.9E 16:23 → C.3T 17:19
PROVIDERS: ADMIT Internal Medicine Nephrology; ATTEND Internal Medicine Nephrology
DX: L04.1 Acute lymphadenitis of trunk (principal); E11.65 Type 2 diabetes mellitus with hyperglycemia; F31.9 Bipolar disorder, unspecified; F79 Unspecified intellectual disabilities; I10 Essential (primary) hypertension; L02.92 Furuncle, unspecified; L30.9 Dermatitis, unspecified; Z87.891 Personal history of nicotine dependence
CPT/HCPCS: 36415; 72193; 80053; 80202; 81001; 82803; 82948; 83690; 85025; 87040; 87070; 96361; 96365; 96366; 96367; 96372; 96375; 96376; 99285; G0378; J0696; J1650; J2270; J3370; J7040; Q9965

== ENCOUNTER 2017-07-15 12:06 | Emergency (ER) | payer MEDICARE, OTHER ==
[2017-07-15 12:10] VITALS: BMI 33.6
[2017-07-15 12:12] VITALS: BP 133/84; PULSE 132; RESP 18; TEMP 98.1; O2SAT 96
--- NOTE | 2017-07-15 12:50 | C.PDOC ---
Time Seen by Provider: 07/15/17 12:40 Chief Complaint (Nursing): Psychiatric Evaluation Past Medical History Vital Signs: Last Vital Signs Temp 98.1 F 07/15/17 12:11 Pulse 132 H 07/15/17 12:11 Resp 18 07/15/17 12:11 BP 133/84 07/15/17 12:11 Pulse Ox 96 07/15/17 12:11 - Medical History PMH: Bipolar Disorder, Diabetes, Schizophrenia (affective) Denies: Chronic Kidney Disease Family History: States: Unknown Family Hx - Social History Hx Alcohol Use: No Hx Substance Use: No - Immunization History Hx Tetanus Toxoid Vaccination: No Hx Influenza Vaccination: No Hx Pneumococcal Vaccination: No ED Course And Treatment O2 Sat by Pulse Oximetry: 96 Disposition - Disposition
== END 2017-07-15 12:40 | disposition left against medical advice (07) ==
LOC: C.ER 12:06
DX: Z02.89 Encounter for other administrative examinations (principal); Z00.00 Encounter for general adult medical examination without abnormal findings

== ENCOUNTER 2018-09-28 14:09 | Outpatient (CLI) | payer MEDICARE, OTHER | END 2018-09-28 14:10 | disposition home or self-care (01) | LOC: C.LAB 14:09 | DX: E11.9 Type 2 diabetes mellitus without complications (principal) ==